=== PATIENT | female | born 1985 | race Caucasian/White ===

== ENCOUNTER 2021-10-11 18:15 | Emergency (ER) | payer OTHER ==
[2021-10-11 18:36] VITALS: BP 121/64; BMI 22.6
[2021-10-11] MEDS ORDERED: SODIUM CHLORIDE 0.9% 500 ML INFUS.BAG IV ONE (20:20)
[2021-10-11] MEDS ORDERED: KETOROLAC TROMETHAMINE 60 MG/2 ML VIAL IVPUSH ONE (20:20)
[2021-10-11] MEDS ORDERED: KETOROLAC TROMETHAMINE 30 MG/1 ML VIAL IVPUSH ONE (22:19)
[2021-10-11] MEDS ORDERED: KETOROLAC TROMETHAMINE 30 MG/1 ML VIAL ONE (22:20)
[2021-10-11 22:54] VITALS: PULSE 100; TEMP 101.5
== END 2021-10-11 23:18 | disposition home or self-care (01) ==
LOC: JER 18:15
PROC: 3E0333Z Introduction of Anti-inflammatory into Peripheral Vein, Percutaneous Approach (ICD-10-PCS; principal; 2021-10-11)
DX: U07.1 COVID-19 (principal)
CPT/HCPCS: 0241U-QW; 84703; 99284-25